=== PATIENT | female | born 1935 | race Caucasian/White ===

== ENCOUNTER → 2017-01-04 | Outpatient (CLI) | payer MEDICARE, MEDICAID ==
[~2017-01-04] MED LIST: ALBUTEROL2 PUFFS/17 IN; ALBUTEROL2.5 MG/NEB IN; AMLODIPINE10 MG PO; ARICEPT5 MG PO; ASPRIN; ASPRIN PO; AZITHROMYCIN250 M1 PO; CARVEDILOL6.25 MG PO; CELEBREX200 MG PO; CEPACOL SORE TH MM; CHLORZOXAZONE500 MG PO; DIAZEPAM5 MG PO; DIGOXIN0.125 MG; DIGOXIN0.25 M1 PO; DIGOXIN0.25 MG NG; DIGOXIN0.25 MG PO; DONEPEZIL 10MG10 MG PO; ELIQUIS2.5 MG PO; FLOVENT 11110 MCG/PU IH; FLUCONAZOLE200 M1 PO; LANOXIN0.125 MG PO; LASIX40 MG PO; LEVAQUIN250 MG PO; LEVOTHROID SO0.05 MG PO; LEVOTHYROXIN0.025 M2 PO; LORTAB 5/500 501 TAB PO; MEDROL 4MG. DOSE4 MG PO; MULTIVITAMIN1 TA2 PO; NABUMETONE500 MG PO; OMNICEF 300 MG300 MG PO; PHENERGAN W/CO473 ML PO; PLAVIX75 MG PO; POTASSIUM CHLO10 ME3 PO; PREDNISONE 10MG10 MG PO; PREDNISONE 20MG20 MG PO; PREDNISONE 5MG.5 MG PO; PREDNISONE20 MG PO; PREDNISONE50 MG PO; PROTONIX 40MG T40 MG PO; RANITIDINE HCL150 MG PO; SERTRALINE 50MG50 MG PO; SINGULAIR10 MG PO; SINUS TABLETS N1 TAB PO; SPIRIVA HA1 PUFF/INH INH; SYNTHROID 0.00.05 MG PO; TESSALON PERLE200 MG PO; VALIUM 5MG TABLE5 MG PO; VIBRAMYCIN 100100 MG PO; WARFARIN SOD5 MG PO; ZANTAC 150150 MG PO; ZANTAC 7575 MG PO; ZITHROMAX Z PA250 MG PO; ZITHROMAX Z-PA250 M2 PO; ZOFRAN ODT4 MG PO; ZOLOFT100 MG PO; [UNRECOGNIZED DRUG - OTHER] PO
--- NOTE | 2017-01-04 13:39 | RADIOLOGY REPORT PS360 ---
ELBOW-RT-2 VIEWS CLINICAL INDICATION: RT ELBOW PAIN ORDERING PHYSICIAN: Zia Mills MD PATIENT AGE: 81 years COMPARISON: 07/08/2015 FINDINGS: There are extensive postsurgical changes of the proximal humerus with a posterior bone plate and multiple screws present as before with good alignment with no proximal humeral fracture. There is an old ununited radial neck fracture with good alignment. 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 IMPRESSION: Overall no change in the postsurgical and posttraumatic changes of the right elbow as described above
== END ==
LOC: RAD 13:04
DX: M25.521 Pain in right elbow (principal)